=== PATIENT | male | born 1985 | race Caucasian/White ===

== ENCOUNTER 2019-04-08 15:39 | Emergency (ER) | payer OTHER ==
[~2019-04-08] VITALS: Ht 190.5 cm; Wt 90.9 kg
[2019-04-08] MEDS ORDERED: KETOROLAC TROMETHAMINE 60 MG/2 ML VIAL IM ONE (17:00)
[2019-04-08] MEDS ORDERED: METHOCARBAMOL 500 MG TABLET PO ONE (17:00)
[2019-04-08 17:31] VITALS: BP 131/86
== END 2019-04-08 17:59 | disposition left against medical advice (07) ==
LOC: EMS 15:41
DX: S33.5XXA Sprain of ligaments of lumbar spine, initial encounter (principal); X50.0XXA Overexertion from strenuous movement or load, initial encounter; Y93.89 Activity, other specified; Y92.89 Other specified places as the place of occurrence of the external cause; Y99.8 Other external cause status
CPT/HCPCS: 96372; 99283; J1885